=== PATIENT | female | born 1960 | race Caucasian/White ===

== ENCOUNTER → 2019-10-06 | Outpatient (CLI) | payer MEDICARE ==
[~2019-10-06] MED LIST: CILOSTAZOL100 MG PO; CLONAZEPAM1 MG PO; CRESTOR10 MG PO; LEVOTHYROXINE50 MCG PO; LOSARTAN POTASS25 MG; LYRICA75 MG PO; POTASSIUM CHLO10 ME1 PO; PROPRANOLOL HCL40 MG PO
== END ==
LOC: MAMMO 12:14
PROVIDERS: ATTEND Family Medicine
DX: Z12.31 Encounter for screening mammogram for malignant neoplasm of breast (principal); I65.23 Occlusion and stenosis of bilateral carotid arteries; R09.89 Other specified symptoms and signs involving the circulatory and respiratory systems
CPT/HCPCS: 77067; 93880